=== PATIENT | female | born 1960 | race Caucasian/White ===

== ENCOUNTER 2017-04-28 09:20 | Emergency (ER) | payer OTHER ==
[~2017-04-28] VITALS: Ht 162.6 cm; Wt 121.0 kg
[2017-04-28 09:20] VITALS: BP 130/86; PULSE 76; RESP 16; TEMP 98.1; O2SAT 93
[~2017-04-28 09:20] MED LIST: CARB6.5S5 RIGHT EAR; CELE20TA PO; LEVO.05 PO; PALI156P IM
[2017-04-28] MEDS ORDERED: INVE1.5T PO (09:31)
[2017-04-28] MEDS ORDERED: NAPR500T PO (09:56)
[2017-04-28] MEDS ORDERED: OFLO0.3D9 RIGHT EAR (09:56)
--- NOTE | 2017-04-28 09:57 | PD ---
HPI Chief Complaint: ENT Complaint Time Seen by Provider: 09:31 Travel History International Travel<30 days: No Contact w/Intl Traveler<30days: No Traveled to known affect area: No History of Present Illness HPI The 56 year-old woman, history of schizophrenia, presents to the emergency department with right ear pain. She was at her primary physician's office when they noted ear wax in the ear canal. She states to nurses came in to clear the ear out. She states that she felt like there were forceful, and she had a lot of pain. Since that time she had persistent pain in the right ear. The try to get in to see an ENT doctor but they required a referral. She otherwise has been feeling generally well and healthy. She's had no real cough or cold symptoms. She has had some nausea. No other complaints. History Past Medical History Narrative Medical Schizoaffective disorder Arthritis Asthma Anxiety and depression High cholesterol Influenza Vaccination: Yes PNEUMOCCOCAL Vaccine (Year): 2 LMP: MENOPAUSAL Menopausal: Yes : 0 Para: 0 Social History Alcohol Use: No Tobacco Use: No Allergies-Medications (Allergen,Severity, Reaction): Coded Allergies: Penicillin (Verified Allergy, Severe, Rash, 04/28/17) Latex (Verified Allergy, Mild, RASH, 04/28/17) Reported Meds & Prescriptions Reported Meds & Active Scripts Active Celexa (Citalopram Hydrobromide) 20 Mg Tab 20 Mg PO DAILY 14 Days Reported Invega (Paliperidone ER) 1.5 Mg Tab 1.5 Mg PO DAILY Invega Sustenna Inj (Paliperidone Palmitate) 156 Mg/Ml Inj 156 Mg IM Q28D Synthroid (Levothyroxine Sodium) 50 Mcg Tab 50 Mcg PO DAILY Review of Systems Except as stated in HPI: all other systems reviewed are Neg Physical Exam Narrative GENERAL: Well-appearing 56 old woman, no acute distress. SKIN: Focused skin assessment warm/dry. HEAD: Atraumatic. Normocephalic. EYES: Pupils equal and round. No scleral icterus. No injection or drainage. ENT: No nasal bleeding or discharge. Mucous membranes pink and moist. Right TM has evidence of perforation just below the umbo. Small, less than 10% of the tympanic membrane. No erythema redness or drainage. No bleeding. NECK: Trachea midline. No JVD. CARDIOVASCULAR: Regular rate and rhythm. No murmur appreciated. RESPIRATORY: No accessory muscle use. Clear to auscultation. Breath sounds equal bilaterally. GASTROINTESTINAL: Abdomen soft, non-tender, nondistended. Hepatic and splenic margins not palpable. MUSCULOSKELETAL: No obvious deformities. Data Data Last Documented VS Vital Signs Date Time Temp Pulse Resp B/P Pulse Ox O2 Delivery O2 Flow Rate FiO2 04/28/17 09:20 98.1 76 16 130/86 93 MDM Medical Decision Making Medical Screen Exam Complete: Yes Emergency Medical Condition: Yes Differential Diagnosis Perforated eardrum, infection, other Narrative Course Medical decision-making new para 56 old woman, looks like she has a perforated eardrum. We'll place her on prophylactic eardrops. Naprosyn for pain. Outpatient follow-up with ENT. Diagnosis Primary Impression: Perforated right tympanic membrane on examination Referrals: Mario Conklin MD 1 week Additional Instructions: Take Naprosyn as prescribed as needed for pain. Take eardrops as prescribed daily. Follow-up with Dr. Conklin, surgery consultant with ENT. Return to the emergency department for any new or worsening symptoms. Med/Other Pt SpecificInfo: Prescription(s) given Scripts Naproxen 500 Mg [id number] Mg PO BID PRN (PAIN SCALE 1 TO 10) #20 TAB Ref 0 Prov:Terrence Aguilar MD 04/28/17 Ofloxacin Otic Drops 0.3 % Drops5 Drop RIGHT EAR DAILY #1 BOTTLE Ref 0 Prov:Terrence Aguilar MD 04/28/17 Disposition: 01 DISCHARGE HOME Condition: Stable Terrence Aguilar MD Apr 28, 2017 09:57
[2017-04-28] MEDS ORDERED: NAPROXEN 500 MG TAB PO ONE (10:15)
== END 2017-04-28 10:17 | disposition home or self-care (01) ==
LOC: PHEFT 09:20
DX: H72.91 Unspecified perforation of tympanic membrane, right ear (principal); F20.9 Schizophrenia, unspecified
CPT/HCPCS: 99283

== ENCOUNTER 2017-06-09 13:21 | Inpatient (IN) | payer OTHER, MEDICARE ==
[~2017-06-09] VITALS: Ht 162.6 cm; Wt 119.0 kg
[~2017-06-09 13:21] MED LIST changes: -CARB6.5S5 RIGHT EAR; +INVE1.5T PO; +NAPR500T PO; +OFLO0.3D9 RIGHT EAR
[2017-06-09 13:22] VITALS: BP 124/92; PULSE 99; RESP 18; TEMP 98.1; O2SAT 98
--- NOTE | 2017-06-09 14:25 | PD ---
HPI Chief Complaint: Suicide Ideation/Attempt Time Seen by Provider: 14:24 Travel History International Travel<30 days: No Contact w/Intl Traveler<30days: No Traveled to known affect area: No History of Present Illness HPI 56-year-old female with PMH of bipolar, borderline personality disorder, schizoaffective disorder presents to the ED for evaluation of suicidal ideations and auditory hallucinations. Patient states that she's been hearing voices for the last week that tell her to harm herself. She has self harm in the past and displays multiple linear cuts to each wrist bilaterally. She states that she's been off some of her psychiatric medications for a few months. She complains of chronic pain in the right thumb, no worse than usual today. She denies other somatic complaints. She denies drinking alcohol, using illicit drugs, cigarette smoking. PFSH Past Medical History Arthritis: Yes Asthma: Yes Autoimmune Disease: No Blood Disorders: No Bipolar Disorder: Yes Anxiety: Yes Depression: Yes Heart Rhythm Problems: No Cancer: No Cardiovascular Problems: No High Cholesterol: Yes Chemotherapy: No Chest Pain: No Congestive Heart Failure: No COPD: No Cerebrovascular Accident: No Developmental Delay: Yes Diabetes: No Diminished Hearing: No Endocrine: Yes GERD: No Gout: Yes Genitourinary: No Hiatal Hernia: No Hypertension: No Immune Disorder: No Implanted Vascular Access Dvce: No Kidney Stones: No Musculoskeletal: Yes Neurologic: No Psychiatric: Yes Reproductive: No Respiratory: Yes (ASTHMA) Immunizations Current: Yes Migraines: No Radiation Therapy: No Renal Failure: No Schizophrenia: Yes Seizures: No Sickle Cell Disease: No Sleep Apnea: Yes ("TAKEN OFF MACHINE AT NIGHT COUPLE MONTHS AGO") Thyroid Disease: Yes Ulcer: No PNEUMOCCOCAL Vaccine (Year): 2 Menopausal: Yes : 0 Para: 0 Miscarriage: 0 : 0 Past Surgical History Abdominal Surgery: No AICD: No Arteriovenous Shunt: No Cardiac Surgery: No Ear Surgery: Yes (L EAR-REBUILD EAR DRUM, REMOVE SCAR TISSUE) Endocrine Surgery: No Eye Surgery: Yes (left eye repair for lazy eye) Genitourinary Surgery: No Gynecologic Surgery: No Insulin Pump: No Joint Replacement: Yes (R KNEE) Oral Surgery: No Thoracic Surgery: No Tonsillectomy: Yes Tympanostomy Tube: Yes (L EAR ) Social History Alcohol Use: No Tobacco Use: No Substance Use: Yes (COCAINE) Allergies-Medications (Allergen,Severity, Reaction): Coded Allergies: Penicillin (Verified Allergy, Severe, Rash, 04/28/17) Latex (Verified Allergy, Mild, RASH, 04/28/17) Reported Meds & Prescriptions Reported Meds & Active Scripts Active Naproxen 500 Mg Tab 500 Mg PO BID PRN Ofloxacin Otic Drops 0.3 % Drops 5 Drop RIGHT EAR DAILY Celexa (Citalopram Hydrobromide) 20 Mg Tab 20 Mg PO DAILY 14 Days Reported Invega (Paliperidone ER) 1.5 Mg Tab 1.5 Mg PO DAILY Invega Sustenna Inj (Paliperidone Palmitate) 156 Mg/Ml Inj 156 Mg IM Q28D Synthroid (Levothyroxine Sodium) 50 Mcg Tab 50 Mcg PO DAILY Review of Systems Except as stated in HPI: all other systems reviewed are Neg Physical Exam Narrative GENERAL: Well-nourished, well-developed obese white female in no acute distress. SKIN: Focused skin assessment warm/dry. Multiple well-healed linear scars on bilateral wrists. HEAD: Normocephalic. EYES: No scleral icterus. No injection or drainage. NECK: Supple, trachea midline. No JVD or lymphadenopathy. CARDIOVASCULAR: Regular rate and rhythm without murmurs, gallops, or rubs. RESPIRATORY: Breath sounds clear and equal bilaterally. No accessory muscle use. GASTROINTESTINAL: Abdomen soft, non-tender, nondistended. Active bowel sounds. MUSCULOSKELETAL: No cyanosis, or edema. No tenderness to palpation of the right thumb. Patient retains her normal range of motion. Neurovascularly intact. BACK: Nontender without obvious deformity. No CVA tenderness. Data Data Last Documented VS Vital Signs Date Time Temp Pulse Resp B/P Pulse Ox O2 Delivery O2 Flow Rate FiO2 06/09/17 14:50 99 Room Air 06/09/17 13:22 98.1 99 18 124/92 Orders Complete Blood Count With Diff (06/09/17 14:15) Comprehensive Metabolic Panel (06/09/17 14:15) Urinalysis - C+S If Indicated (06/09/17 14:15) Psych Screen (06/09/17 14:15) Drug Screen, Random Urine (06/09/17 14:15) Alcohol (Ethanol) (06/09/17 14:15) Ice/Cold Pack (06/09/17 14:25) Ibuprofen (Motrin) (06/09/17 14:30) Diet Regular Basic (06/09/17 Dinner) Labs Laboratory Tests Test 06/09/17 14:20 White Blood Count 8.7 TH/MM3 Red Blood Count 4.47 MIL/MM3 Hemoglobin 13.2 GM/DL Hematocrit 38.4 % Mean Corpuscular Volume 86.0 FL Mean Corpuscular Hemoglobin 29.5 PG Mean Corpuscular Hemoglobin 34.4 % Concent Red Cell Distribution Width 13.9 % Platelet Count 240 TH/MM3 Mean Platelet Volume 8.7 FL Neutrophils (%) (Auto) 73.6 % Lymphocytes (%) (Auto) 19.2 % Monocytes (%) (Auto) 5.3 % Eosinophils (%) (Auto) 1.5 % Basophils (%) (Auto) 0.4 % Neutrophils # (Auto) 6.4 TH/MM3 Lymphocytes # (Auto) 1.7 TH/MM3 Monocytes # (Auto) 0.5 TH/MM3 Eosinophils # (Auto) 0.1 TH/MM3 Basophils # (Auto) 0.0 TH/MM3 CBC Comment DIFF FINAL Differential Comment Urine Color LIGHT-YELLOW Urine Turbidity CLEAR Urine pH 5.5 Urine Specific [place] 1.008 Urine Protein NEG mg/dL Urine Glucose (UA) NEG mg/dL Urine Ketones NEG mg/dL Urine Occult Blood NEG Urine Nitrite NEG Urine Bilirubin NEG Urine Urobilinogen LESS THAN 2.0 MG/DL Urine Leukocyte Esterase NEG Urine RBC 1 /hpf Urine WBC 1 /hpf Urine Bacteria RARE /hpf Urine Hyaline Casts 1 /lpf Microscopic Urinalysis Comment CULT NOT INDICATED Sodium Level 138 MEQ/L Potassium Level 3.7 MEQ/L Chloride Level 105 MEQ/L Carbon Dioxide Level 23.7 MEQ/L Anion Gap 9 MEQ/L Blood Urea Nitrogen 15 MG/DL Creatinine 0.80 MG/DL Estimat Glomerular Filtration 75 ML/MIN Rate Random Glucose 154 MG/DL Calcium Level 8.9 MG/DL Total Bilirubin 0.3 MG/DL Aspartate Amino Transf 16 U/L (AST/SGOT) Alanine Aminotransferase 32 U/L (ALT/SGPT) Alkaline Phosphatase 106 U/L Total Protein 6.9 GM/DL Albumin 3.2 GM/DL Urine Opiates Screen NEG Urine Barbiturates Screen NEG Urine Amphetamines Screen NEG Urine Benzodiazepines Screen NEG Urine Cocaine Screen NEG Urine Cannabinoids Screen NEG Ethyl Alcohol Level LESS THAN 3 MG/DL MDM Medical Decision Making Medical Screen Exam Complete: Yes Emergency Medical Condition: Yes Differential Diagnosis Adjustment disorder versus anxiety versus bipolar versus depression versus dementia versus electrolyte disorder versus malingering versus mood disorder versus ODD versus psychosis versus PTSD versus schizophrenia versus schizoaffective disorder versus substance-induced mood disorder versus other Narrative Course 56-year-old female with PMH of bipolar, borderline personality disorder, schizoaffective disorder presents to the ED for evaluation of suicidal ideations and auditory hallucinations. Patient states that she's been hearing voices for the last week that tell her to harm herself. She has self harm in the past and displays multiple linear cuts to each wrist bilaterally. She states that she's been off some of her psychiatric medications for a few months. Vitals reviewed. Physical exam unremarkable. Patient was placed under [place] act. The patient was administered an ice pack and ibuprofen for her thumb pain. Lab work is unremarkable. The patient is medically cleared for psychiatric evaluation. Please see psych notes for disposition. Diagnosis Primary Impression: Medical clearance for psychiatric admission Additional Impressions: Suicidal ideation Auditory hallucination Kassy Bustillo Jun 09, 2017 14:25
[2017-06-09 14:29] LABS: AUTOMATED NEUTROPHIL # 6.4 TH/MM3 (1.8-7.7); BASOPHIL % 0.4 % (0.0-2.0); EOSINOPHIL # 0.1 TH/MM3 (0-0.4); EOSINOPHIL % 1.5 % (0.0-4.0); HEMATOCRIT 38.4 % (35.0-46.0); HEMO FLAGS DIFF FINAL; LYMPH % 19.2 % (9.0-44.0); LYMPHOCYTE # 1.7 TH/MM3 (1.0-4.8); MEAN CORPUSCULAR HEMOGLOBIN 29.5 PG (27.0-34.0); MEAN CORPUSCULAR HGB CONC 34.4 % (32.0-36.0); MONO % 5.3 % (0.0-8.0); NEUT % 73.6 % (16.0-70.0); PLATELET COUNT 240 TH/MM3 (150-450); RED BLOOD COUNT 4.47 MIL/MM3 (4.00-5.30); RED CELL DISTRIBUTION WIDTH 13.9 % (11.6-17.2); WHITE BLOOD COUNT 8.7 TH/MM3 (4.0-11.0)
[2017-06-09] MEDS ORDERED: IBUPROFEN 600 MG TAB PO ONE (14:30)
[2017-06-09 14:33] LABS: BACTERIA, URINE RARE /hpf; BLOOD, URINE NEG (NEG); COMMENT (UR) CULT NOT INDICATED; CULTURE IF INDICATED CULT NOT INDICATED; GLUCOSE,URINE NEG (NEG); HYALINE CAST, URINE 1 /lpf (RARE); KETONE, URINE NEG (NEG); NITRITE,URINE NEG (NEG); PH, URINE 5.5 (5.0-8.5); URINE COLOR LIGHT-YELLOW (YELLW/STRAW)
[2017-06-09 14:37] LABS: AMPHETAMINE, URINE NEG (NEG); BARBITURATES, URINE NEG (NEG); COCAINE, URINE NEG (NEG)
[2017-06-09 14:44] LABS: ANION GAP 9 MEQ/L (5-15); AST (GOT) 16 U/L (15-37); BICARBONATE 23.7 MEQ/L (21.0-32.0); BLOOD UREA NITROGEN 15 MG/DL (7-18); CHLORIDE 105 MEQ/L (98-107); GLOMERULAR FILTRATION RATE 75 ML/MIN (>89); POTASSIUM 3.7 MEQ/L (3.5-5.1); SODIUM (NA) 138 MEQ/L (136-145)
[2017-06-09 14:45] LABS: ALT (GPT) 32 U/L (10-53)
[2017-06-09 14:48] LABS: ALKALINE PHOSPHATASE 106 U/L (45-117); TOTAL BILIRUBIN ADULT 0.3 MG/DL (0.2-1.0)
[2017-06-09 16:42] VITALS: BP 118/74; PULSE 85; RESP 16; O2SAT 100
[2017-06-09 18:30] VITALS: BP 118/84; PULSE 93; RESP 18; TEMP 98; O2SAT 93
[2017-06-09] MEDS ORDERED: ALUMINUM/MAGNESIUM/SIMETH 30 ML CUP PO PRN (21:45)
[2017-06-09] MEDS ORDERED: ACETAMINOPHEN 325 MG TAB PO PRN (21:45)
[2017-06-09] MEDS ORDERED: MAGNESIUM HYDROXIDE SUSP 30 ML CUP PO PRN (21:45)
[2017-06-09] MEDS ORDERED: LORazepam 2 MG/ML VIAL IM PRN (21:45)
[2017-06-09 23:02] VITALS: BP 132/92; PULSE 94; RESP 18; O2SAT 98
[2017-06-10 00:10] VITALS: BP 130/84; PULSE 84; RESP 16; TEMP 97.7; O2SAT 97
[2017-06-10 05:30] VITALS: PULSE 83; RESP 16; TEMP 97.9; O2SAT 94
[2017-06-10 08:13] LABS: HDL CHOLESTEROL 42.3 MG/DL (40.0-60.0); LDL CHOLESTEROL 119 MG/DL (0-99)
[2017-06-10] MEDS: CITALOPRAM HYDROBROMIDE 20 MG TAB PO SCH (09:16)
[2017-06-10] MEDS: PALIPERIDONE ER 3 MG TAB PO SCH (09:26)
[2017-06-10] MEDS ORDERED: ALBUTEROL SULFATE 90 MCG/ACT HFA 18 GM INHALER INH PRN (09:45)
[2017-06-10] MEDS ORDERED: ALBUTEROL SULFATE 90 MCG/ACT HFA 8 GM INHALER INH PRN (09:45)
--- NOTE | 2017-06-10 11:56 | HHI.HP ---
Provisional Diagnosis Admission Date Jun 09, 2017 at 21:21 [place] I. Schizoaffective disorder, bipolar type [place] II. Borderline personality disorder [place] III. HTN, asthma [place] IV. History of suicidal attempts and self cutting behavior [place] V. 40 Certification of Person's Competence To Provide Express and Informed Consent I have personally examined Maida Xavier , a person being served at [facility] on, Jun 10, 2017 11:39. Express and informed consent means consent voluntarily given in writing, by a competent person, after sufficient explanation and disclosure of the subject matter involved to enable the person to make a knowing and willful decision without any element of force, fraud, deceit, duress, or other form of constraint or coercion. This person is 18 years of age or older, is not now known to be incompetent to consent to treatment with a guardian advocate, and does not have a health care surrogate or proxy currently making medical treatment decisions. I have found this person to be one of the following: [x] Competent to provide express and informed consent, as defined above, for voluntary admission to this facility and is competent to provide express and informed consent for treatment. He/she has the consistent capacity to make well reasoned, willful, and knowing decisions concerning his or her medical or mental health treatment. The person fully and consistently understands the purpose of the admission for examination/placement and is fully capable of personally exercising all rights [place] Incompetent to provide express and informed consent to voluntary admission, and this is incompetent to provide express and informed consent to treatment. The person must be transferred to involuntary status and a petition for a guardian advocate filed with the Circuit Court. [] Refusing to provide express and informed consent to voluntary admission but is competent to provide express and informed consent for treatment. The person must be discharged or transferred to involuntary status. Form shall be completed within 24 hours of a person's arrival at the receiving facility and filed in the clinical record of each person: 1. Admitted on a voluntary basis 2. Permitted to provide express and informed consent to his/her own treatment 3. Allowed to transfer from involuntary to voluntary status 4. Prior to permitting a person to consent to his or her own treatment after having been previously found incompetent to consent to treatment. History of Present Illness Capacity: Has Capacity HPI The patient is a 56-year-old woman, domicile with her mother in [place], part-time employed, on SSI, single, with extensive psychiatric history of schizoaffective disorder, bipolar type, borderline personality disorder, multiple psychiatric hospitalizations, her last hospitalization was here at [facility] in September 2016 under the care of Dr. Joya, documentation review, multiple suicidal/parasuicidal attempts, self cutting behavior without SI, active outpatient care in [facility], she is on Invega ER 6 mg daily and Celexa 10, has not been compliant with medication was given Invega Sustenna dose on [id number], unknown dose, medical history of HTN, asthma, who came to [facility] voluntarily requested psychiatric admission due to command in type auditory hallucinations of voices telling her to cut herself. On psychiatric evaluation today patient is calm, cooperative, she explains that in the last 4 days she has been experiencing everyday more frequent, or severe, intense and loud auditory hallucinations of multiple voices telling her to cut herself. Patient also has been experiencing increased desire and impulses to cut herself " because I want to feel the gratification of the pain going away, but I know it' s wrong, I don't want to do it and I don't want to ". Due to this perceptual disturbances patient has been feeling depressed, with decreased level of appetite, decreased sleep, decreased energy, increased isolation, increased sensitivity to rejection and frustration and mood swings. Patient says that she has not been taking her medications for some weeks now. She says that she just stoped. Patient is oriented 3, no attention deficit, no gross cognitive impairment present. Patient has a concrete and goal-directed thought processes, but no disorganization, no tangentiality, no paranoia, no delusions of reference present. Patient denies the use of alcohol and illicit drugs. Review of Systems Constitutional: DENIES: Diaphoretic episodes, Fatigue, Fever, Weight gain, Weight loss, Chills, Dizziness, Change in appetite, Night Sweats Endocrine: DENIES: Abnorml menstrual pattern, Heat/cold intolerance, Polydipsia , Polyuria, Polyphagia Eyes: DENIES: Blurred vision, Diplopia, Eye inflammation, Eye pain, Vision loss , Photosensitivity, Double Vision Ears, nose, mouth, throat: DENIES: Tinnitus, Hearing loss, Vertigo, Nasal discharge, Oral lesions, Throat pain, Hoarseness, Ear Pain, Running Nose, Epistaxis, Sinus Pain, Toothache, Odynophagia Respiratory: DENIES: Apneas, Cough, Snoring, Wheezing, Hemoptysis, Sputum production, Shortness of breath Cardiovascular: DENIES: Chest pain, Palpitations, Syncope, Dyspnea on Exertion , PND, Lower Extremity Edema, Orthopnea, Claudication Genitourinary: DENIES: Abnormal vaginal bleeding, Dysmenorrhea, Dyspareunia, Sexual dysfunction, Urinary frequency, Urinary incontinence, Urgency, Hematuria , Dysuria, Nocturia, Vaginal discharge Musculoskeletal: DENIES: Joint pain, Muscle aches, Stiffness, Joint Swelling, Back pain, Neck pain Integumentary: DENIES: Abnormal pigmentation, Pruritus, Rash, Nail changes, Breast masses, Breast skin changes, Nipple discharge Hematologic/lymphatic: DENIES: Bruising, Lymphadenopathy Immunologic/allergic: DENIES: Eczema, Urticaria Neurologic: DENIES: Abnormal gait, Headache, Localized weakness, Paresthesias, Seizures, Speech Problems, Tremor, Poor Balance Psychiatric: COMPLAINS OF: Hallucinations, Delusions Past Psych History Violence risk - self (6 mos) Increased Substance Abuse History Drugs/Alcohol past 12 months Patient denies the use of drugs and alcohol Past Family Social History Coded Allergies: Penicillin (Verified Allergy, Severe, Rash, 04/28/17) Latex (Verified Allergy, Mild, RASH, 04/28/17) Active Scripts Naproxen 500 Mg [id number] Mg PO BID PRN (PAIN SCALE 1 TO 10) #20 TAB Ref 0 Prov:Terrence Aguilar MD 04/28/17 Citalopram (Celexa)20 Mg Tab20 Mg PO DAILY 14 Days Ref 1 Prov:Sandro Joya MD 10/10/16 Reported Medications Paliperidone ER (Invega)1.5 Mg Tab1.5 Mg PO DAILY #30 TAB Ref 0 04/28/17 Paliperidone Palmitate Inj (Invega Sustenna Inj)156 Mg/Ml [id number] Mg IM Q28D #1 VIAL Ref 0 10/04/16 Levothyroxine (Synthroid)50 Mcg Tab50 Mcg PO DAILY #30 TAB Ref 0 10/04/16 Discontinued Scripts Ofloxacin Otic Drops 0.3 % Drops5 Drop RIGHT EAR DAILY #1 BOTTLE Ref 0 Prov:Terrence Aguilar MD 04/28/17 Current Medications Medications (Trade) Dose Ordered Sig/Bk Route Start Time Stop Time Status Last Admin (Ativan) 1 mg Q6H PRN PO 06/09/17 21:45 (Ativan Inj) 1 mg Q6H PRN IM 06/09/17 21:45 (Tylenol) 650 mg Q4H PRN PO 06/09/17 21:45 (Milk Of Magnesia Liq) 30 ml DAILY PRN PO 06/09/17 21:45 (Mag-Al Plus Susp Liq) 30 ml Q6H PRN PO 06/09/17 21:45 (Invega Er) 3 mg DAILY PO 06/10/17 09:00 06/10/17 09:26 (CeleXA) 10 mg DAILY PO 06/10/17 09:00 06/10/17 09:16 (Synthroid) 50 mcg DAILY@06 PO 06/11/17 06:00 (Ventolin Hfa Inh) 2 puff Q4H PRN INH 06/10/17 09:45 Family History She denies family psychiatric history Social History Patient was born in [facility], she lives with her mother in [place], single, part-time employed, on SSI since the, highest level of education is high school Patient's Strengths (min. 2) Good insight Physical Exam On physical examination, no tremors, no withdrawal, no EPS, no gait disturbance present Vital Signs Vital Signs Date Time Temp Pulse Resp B/P Pulse Ox O2 Delivery O2 Flow Rate FiO2 06/10/17 05:30 97.9 83 16 94 06/09/17 23:02 Room Air Lab Results Labs Laboratory Tests Test 06/09/17 14:20 White Blood Count 8.7 TH/MM3 Red Blood Count 4.47 MIL/MM3 Hemoglobin 13.2 GM/DL Hematocrit 38.4 % Mean Corpuscular Volume 86.0 FL Mean Corpuscular Hemoglobin 29.5 PG Mean Corpuscular Hemoglobin 34.4 % Concent Red Cell Distribution Width 13.9 % Platelet Count 240 TH/MM3 Mean Platelet Volume 8.7 FL Neutrophils (%) (Auto) 73.6 % Lymphocytes (%) (Auto) 19.2 % Monocytes (%) (Auto) 5.3 % Eosinophils (%) (Auto) 1.5 % Basophils (%) (Auto) 0.4 % Neutrophils # (Auto) 6.4 TH/MM3 Lymphocytes # (Auto) 1.7 TH/MM3 Monocytes # (Auto) 0.5 TH/MM3 Eosinophils # (Auto) 0.1 TH/MM3 Basophils # (Auto) 0.0 TH/MM3 CBC Comment DIFF FINAL Differential Comment Urine Color LIGHT-YELLOW Urine Turbidity CLEAR Urine pH 5.5 Urine Specific [place] 1.008 Urine Protein NEG mg/dL Urine Glucose (UA) NEG mg/dL Urine Ketones NEG mg/dL Urine Occult Blood NEG Urine Nitrite NEG Urine Bilirubin NEG Urine Urobilinogen LESS THAN 2.0 MG/DL Urine Leukocyte Esterase NEG Urine RBC 1 /hpf Urine WBC 1 /hpf Urine Bacteria RARE /hpf Urine Hyaline Casts 1 /lpf Microscopic Urinalysis Comment CULT NOT INDICATED Sodium Level 138 MEQ/L Potassium Level 3.7 MEQ/L Chloride Level 105 MEQ/L Carbon Dioxide Level 23.7 MEQ/L Anion Gap 9 MEQ/L Blood Urea Nitrogen 15 MG/DL Creatinine 0.80 MG/DL Estimat Glomerular Filtration 75 ML/MIN Rate Random Glucose 154 MG/DL Calcium Level 8.9 MG/DL Total Bilirubin 0.3 MG/DL Aspartate Amino Transf 16 U/L (AST/SGOT) Alanine Aminotransferase 32 U/L (ALT/SGPT) Alkaline Phosphatase 106 U/L Total Protein 6.9 GM/DL Albumin 3.2 GM/DL Urine Opiates Screen NEG Urine Barbiturates Screen NEG Urine Amphetamines Screen NEG Urine Benzodiazepines Screen NEG Urine Cocaine Screen NEG Urine Cannabinoids Screen NEG Ethyl Alcohol Level LESS THAN 3 MG/DL Mental Status Examination Appearance Overweight woman, appears younger than his stated age, regular clothing, calm and cooperative Speech: Unremarkable Orientation: x3 Memory: Unremarkable Thought Process: Logical Thought Content: Unremarkable Language Fluent and spontaneous Fund of Knowledge Adequate for her level of education Hallucination Type: Auditory (commanding type, telling her to cut herself) Attention and Concentration: Good Suicidal Ideation: No Previous Suicide Attempts: Yes Homicidal Ideation: No Previous Homicide Attempts: No Insight: Good Judgment: Impulsive Affect: Sad Mood: Sad Assessment & Plan Problem List: (1) Borderline personality disorder ICD Code: 301.83 (2) Schizoaffective disorder Assessment & Plan: On psychiatric evaluation patient reports 4 days of increased intensity, frequency and severity commanding-type auditory hallucinations of voices telling her to cut herself in the context of noncompliance with her psychotropics. Patient also reports depressive symptoms related with his perceptual disturbances. Patient has an extensive history of suicidal attempts and self cutting behavior. At this moment she is in an elevator risk of hurting herself and needs psychiatric admission for stabilization and safety. Will start Invega 3 mg and Celexa 10. Collateral information from [facility] to confirm last dose of Invega Sustenna. Patient has contracted for safety in the unit. Extensive support, motivation and psychoeducation provided. We will consult medicine for underlying medical condition, increased TSH. dry drug worker intervention for psychosocial assessment, collateral information, individual and group therapy, safe discharge. ICD Code: 295.70 Assessment & Plan Estimated LOS: days Byron Smith MD Jun 10, 2017 11:56
[2017-06-10] MEDS ORDERED: LEVO.075 PO (14:33)
--- NOTE | 2017-06-10 14:51 | PD.CONS ---
HPI Service [facility] Consult Requested By Psychiatric services Reason for Consult COPD, ASTHMA, BILATERAL LEG EDEMA, SLEEP APNEA Primary Care Physician Unknown Diagnoses: History of Present Illness Written by Sia Walker, acting as scribe for Dr. Hammodn on 06/10/17 at 14:44. This is a 56-year-old female patient with past medical history which includes hypothyroidism, bipolar disorder and asthma. Patient reports that she has her voices telling her to cut her wrist. Patient currently admitted to inpatient psychiatric center we been consulted for assistance with medical management of COPD, asthma, bilateral leg edema and sleep apnea. Patient offers no specific medical complaints at this time. Patient denies chest pains was breath nausea vomiting diarrhea constipation fevers or chills. Patient does report she is compliant with her Synthroid daily. Patient ports she has not used her rescue inhaler in many years. Review of Systems Except as stated in HPI: all other systems reviewed are Neg Past Family Social History Allergies: Coded Allergies: Penicillin (Verified Allergy, Severe, Rash, 04/28/17) Latex (Verified Allergy, Mild, RASH, 04/28/17) Past Medical History hypothyroidism, bipolar disorder and asthma Past Surgical History Eye surgery as a child to correct a strabismus Tonsillectomy as a child Right thumb bone fusion Partial right knee replacement Left ear tympanic membrane repair Reported Medications Naproxen 500 Mg Tab 500 Mg PO BID PRN Celexa (Citalopram Hydrobromide) 20 Mg Tab 20 Mg PO DAILY 14 Days Invega (Paliperidone ER) 1.5 Mg Tab 1.5 Mg PO DAILY Invega Sustenna Inj (Paliperidone Palmitate) 156 Mg/Ml Inj 234 Mg IM Q28D Synthroid (Levothyroxine Sodium) 50 Mcg Tab 50 Mcg PO DAILY Active Ordered Medications Current Medications Medications (Trade) Dose Ordered Sig/Bk Route Start Time Stop Time Status Last Admin (Ativan) 1 mg Q6H PRN PO 06/09/17 21:45 (Ativan Inj) 1 mg Q6H PRN IM 06/09/17 21:45 (Tylenol) 650 mg Q4H PRN PO 06/09/17 21:45 (Milk Of Magnesia Liq) 30 ml DAILY PRN PO 06/09/17 21:45 (Mag-Al Plus Susp Liq) 30 ml Q6H PRN PO 06/09/17 21:45 (Invega Er) 3 mg DAILY PO 06/10/17 09:00 06/10/17 09:26 (CeleXA) 10 mg DAILY PO 06/10/17 09:00 06/10/17 09:16 (Synthroid) 50 mcg DAILY@06 PO 06/11/17 06:00 (Ventolin Hfa Inh) 2 puff Q4H PRN INH 06/10/17 09:45 Family History Father in his 50s had CAD with coronary artery bypass graft and lung cancer Social History Denies EtOH use tobacco use or illicit drug use lives with her mother Physical Exam Vital Signs Vital Signs Date Time Temp Pulse Resp B/P Pulse Ox O2 Delivery O2 Flow Rate FiO2 06/10/17 05:30 97.9 83 16 94 06/10/17 00:10 97.7 84 16 130/84 97 06/09/17 23:02 94 18 132/92 98 Room Air 06/09/17 18:30 98.0 93 18 118/84 93 Room Air 06/09/17 16:42 85 16 118/74 100 06/09/17 14:50 99 Room Air Physical Exam GENERAL: This is a well-nourished, well-developed patient, in no apparent distress. SKIN: No rashes, ecchymoses or lesions. Cool and dry. HEAD: Atraumatic. Normocephalic. No temporal or scalp tenderness. EYES: Extraocular motions intact. No scleral icterus. No injection or drainage. CARDIOVASCULAR: Regular rate and rhythm RESPIRATORY: Clear to auscultation. Breath sounds equal bilaterally. No wheezes , rales, or rhonchi. GASTROINTESTINAL: Abdomen soft, non-tender, nondistended. No guarding. MUSCULOSKELETAL: Extremities without clubbing or cyanosis. No calf tenderness. Negative Homans sign bilaterally. Trace bilateral lower extremity edema NEUROLOGICAL: Awake and alert. No focal deficits appreciated. Motor and sensory grossly within normal limits. Five out of 5 muscle strength in all muscle groups. Normal speech. Laboratory Laboratory Tests Test 06/10/17 06:56 Triglycerides Level 177 Cholesterol Level 197 LDL Cholesterol 119 HDL Cholesterol 42.3 Cholesterol/HDL Ratio 4.65 Thyroid Stimulating Hormone 4.150 3rd Gen Result Diagram: 06/09/17 1420 06/09/17 1420 Assessment and Plan Assessment and Plan This is a 56-year-old female patient with past medical history which includes hypothyroidism, bipolar disorder and asthma. Patient does report she is compliant with her Synthroid daily. Patient ports she has not used her rescue inhaler in many years. Patient offers no specific medical complaint at this time. Suicidal ideations management per psychiatric team Hypothyroidism- TSH 4.15 Patient ports she is compliant with her Synthroid daily Will increase dose to 75 mcg every day Patient will need outpatient follow-up and recheck of TSH/T4 in 6-8 weeks Asthma- not in acute exacerbation Albuterol rescue inhaler ordered as needed DVT prophylaxis patient is ambulatory and low risk Discussed with patient and nursing Patient medically stable at this time we'll sign off. If patient's condition changes or further assistance needed please reconsult. Recommend patient continue Synthroid 75 mcg daily and follow up with PCP/ endocrinology and 6-8 weeks for laboratory recheck and dose adjustment if needed This note was transcribed by scribe [Sia Walker]. I, Dr. Anita Hammond personally performed the history, physical exam, and medical decision making; and confirmed the accuracy of the information in the transcribed note. Authenticated by Dr. Anita Hammond on 06/10/17 at 1450. Sia Walker Jun 10, 2017 14:51 Anita Hammond MD Jun 11, 2017 10:08
[2017-06-10 18:00] VITALS: BP 114/82; PULSE 72; RESP 16; TEMP 96.8; O2SAT 96
[2017-06-10] MEDS: LORazepam 1 MG TAB PO PRN (20:51)
[2017-06-11 05:30] VITALS: BP 113/63; PULSE 83; RESP 18; TEMP 97.8; O2SAT 93
[2017-06-11] MEDS ORDERED: LEVOTHYROXINE SODIUM 50 MCG TAB PO SCH (06:00)
[2017-06-11] MEDS: LEVOTHYROXINE SODIUM 75 MCG TAB PO SCH (06:03)
[2017-06-11] MEDS: CITALOPRAM HYDROBROMIDE 20 MG TAB PO SCH (08:36)
[2017-06-11] MEDS: PALIPERIDONE ER 3 MG TAB PO SCH ×2 (08:36→21:00)
[2017-06-11] MEDS: LORazepam 1 MG TAB PO PRN (10:24)
[2017-06-11 12:27] LABS: HEMOGLOBIN A1a 0.7 %; HEMOGLOBIN A1b 1.8 %; HEMOGLOBIN Ao 85.4 %; HEMOGLOBIN LA1C 1.3 %; HEMOGLOBIN P3 3.4 %
--- NOTE | 2017-06-11 14:26 | HHI.PYPN ---
Subjective Remarks Patient was seen and case discussed with nursing. Patient is anxious and rocking back and forth during the interview. She continues to complain of persistent command auditory hallucinations to cut her wrists. Says she has suicidal ideation with no intent or plan. When asked if she cut herself before admission she says yes, 3 days ago, and points to scars that are old and fully healed. Objective Alert: Yes [place]: Place Mood: Anxious Affect: Labile Memory Intact: Immediate (not tested) Hallucinations: Auditory (command to cut herself) Delusions: Yes Delusion Type: Other (none elicited) Suicidal: Ideation (fleeting, plan to cut herself) Homicidal: Ideation (denies) Insight/Judgment Poor Vitals/IOs Vital Signs Date Time Temp Pulse Resp B/P Pulse Ox O2 Delivery O2 Flow Rate FiO2 06/11/17 05:30 97.8 83 18 113/63 93 06/09/17 23:02 Room Air Assessment & Plan Problem List: (1) Borderline personality disorder ICD Code: 301.83 (2) Schizoaffective disorder ICD Code: 295.70 Assessment & Plan Case was discussed with nursing team and a one-to-one was ordered Justification for Cont. Inpt. Patient will decompensate in a less restrictive setting Ziggy Orantes DO Jun 11, 2017 14:26
[2017-06-11 22:33] VITALS: BP 148/87; PULSE 86; RESP 18; TEMP 87.6; O2SAT 97
[2017-06-12 06:02] VITALS: BP 119/71; PULSE 103; RESP 18; TEMP 97.5; O2SAT 94
[2017-06-12] MEDS: LEVOTHYROXINE SODIUM 75 MCG TAB PO SCH (06:23)
[2017-06-12] MEDS: PALIPERIDONE ER 3 MG TAB PO SCH ×2 (09:28→21:32)
[2017-06-12] MEDS: CITALOPRAM HYDROBROMIDE 20 MG TAB PO SCH (09:28)
[2017-06-12] MEDS: LORazepam 1 MG TAB PO PRN ×3 (09:33→22:01)
--- NOTE | 2017-06-12 12:01 | HHI.PYPN ---
Subjective Remarks Patient seen and examined with counselor and nurse. Chart reviewed. Case discussed with nursing staff who reports that the patient was transferred from the lower acuity unit to the higher acuity unit after verbalizing command auditory hallucinations to self injure. On my examination today, the patient reports that the command auditory hallucinations are "slowing down" now. She denies any suicidal ideation, intent or plan on direct questioning and contracts for safety. Denies homicidal ideation. Says that reading helps distract her from the voices. Denies any issues with low mood or elevated mood. No other hallucinatory material. No delusions. Denies side effects from medications. Says that she got her last dose of Invega Sustenna last Monday. We discussed alternative methods for decreasing her psychotic symptoms , such as augmenting with another antipsychotic or administering additional Invega Sustenna, but the patient wishes to continue with oral supplementation of her Invega Sustenna with PO Invega for now after a discussion of the relative merits of each approach. Denies side effects from medications. No physical complaints. Review of Systems ROS Limitations: Psychotic Except as stated in HPI: all other systems reviewed are Neg Objective Alert: Yes [place]: Person, Place Mood: Calm Affect: Blunted Memory Intact: Comment (fair on clinical exam) Hallucinations: Auditory (decreasing CAH to self injure) Delusions: No Delusion Type: Other (no delusions elicited) Suicidal: Ideation (denies SI, intent, plan) Homicidal: Ideation (denies HI) Insight/Judgment Fair Remarks No motor abnormalities noted. Thought process linear. Grooming and hygiene fair. Speech within normal limits for rate, tone and volume. Labs Labs reviewed. I note elevated TSH, Synthroid has been adjusted. Also note decreased GFR and mild hyperglycemia. Hemoglobin A1c is 6.3%. Vitals/IOs Vital Signs Date Time Temp Pulse Resp B/P Pulse Ox O2 Delivery O2 Flow Rate FiO2 06/12/17 06:02 97.5 103 18 119/71 94 06/09/17 23:02 Room Air Assessment & Plan Problem List: (1) Schizoaffective disorder, bipolar type ICD Code: F25.0 (2) Borderline personality disorder ICD Code: F60.3 Assessment & Plan Continue oral Invega as ordered. Continue Celexa as ordered. I will discontinue the one-to-one sitter but continue to closely monitor on the high acuity unit. Continue other medications and care as ordered. Justification for Cont. Inpt. Impairment in reality construction. Monitoring for impairment and safety. Discharge Planning Pending stabilization. Request HC Surrog/Guard Advoc?: No Brad Haddad MD Jun 12, 2017 12:01
[2017-06-12 18:17] VITALS: BP 136/83; PULSE 83; RESP 18; TEMP 98.1; O2SAT 99
[2017-06-13] MEDS: LEVOTHYROXINE SODIUM 75 MCG TAB PO SCH (05:46)
[2017-06-13 06:04] VITALS: BP 123/89; PULSE 115; RESP 18; TEMP 97.2; O2SAT 93
[2017-06-13] MEDS: PALIPERIDONE ER 3 MG TAB PO SCH ×2 (09:10→21:01)
[2017-06-13] MEDS: LORazepam 1 MG TAB PO PRN ×2 (09:11→15:40)
[2017-06-13] MEDS: CITALOPRAM HYDROBROMIDE 20 MG TAB PO SCH (09:11)
--- NOTE | 2017-06-13 11:55 | HHI.PYPN ---
Subjective Remarks Patient seen and examined with counselor and nurse. Chart reviewed. Case discussed in treatment team. Nursing staff noting significant [place] II component. I concur. On my exam, patient reports that audiovisual hallucinations and command auditory hallucinations have gone away since last night. She denies any suicidal or homicidal ideation. Denies side effects from medications. No physical complaints. Asking about going home. Review of Systems ROS Limitations: Poor Historian Except as stated in HPI: all other systems reviewed are Neg Objective Alert: Yes [place]: Person, Place Mood: Calm Affect: Blunted Memory Intact: Comment (remains fair) Hallucinations: Other (denies AVH. Denies CAH.) Delusions: No Delusion Type: Other (no delusions) Suicidal: Ideation (denies SI) Homicidal: Ideation (denies HI) Insight/Judgment Poor Remarks No motor abnormalities. Thought processes fairly linear. Grooming and hygiene fair. Labs Labs reviewed. Vitals/IOs Vital Signs Date Time Temp Pulse Resp B/P Pulse Ox O2 Delivery O2 Flow Rate FiO2 06/13/17 06:04 97.2 115 18 123/89 93 06/09/17 23:02 Room Air Assessment & Plan Problem List: (1) Schizoaffective disorder, bipolar type ICD Code: F25.0 (2) Borderline personality disorder ICD Code: F60.3 Assessment & Plan Counselor to reach out to patient's mother with patient's permission. If mother is comfortable having the patient home, might consider discharge tomorrow if the patient passes an uneventful evening. Continue current psychotropics as ordered. Continue other medications and care as ordered. Justification for Cont. Inpt. Monitoring for impairments in safety, none noted Discharge Planning Possible discharge home tomorrow, Monday Request HC Surrog/Guard Advoc?: No Brad Haddad MD Jun 13, 2017 11:55
[2017-06-13 18:11] VITALS: BP 107/84; PULSE 86; RESP 18; TEMP 98.1; O2SAT 95
[2017-06-14 05:53] VITALS: BP 128/76; PULSE 18; RESP 18; TEMP 97.3; O2SAT 93
[2017-06-14] MEDS: LEVOTHYROXINE SODIUM 75 MCG TAB PO SCH (05:54)
[2017-06-14] MEDS: CITALOPRAM HYDROBROMIDE 20 MG TAB PO SCH (08:36)
[2017-06-14] MEDS: PALIPERIDONE ER 3 MG TAB PO SCH (08:37)
[2017-06-14] MEDS ORDERED: CELE20TA PO (09:49)
[2017-06-14] MEDS ORDERED: INVE3TAB2 PO (09:49)
--- NOTE | 2017-06-14 09:49 | HHI.DS ---
Psychiatry Discharge Summary Inpatient Psychiatric care?: Yes Advance Directive: No Reason Not Provided: Due to Patient Condition Mental Health AdvanceDirective: No Health Care Proxy: No Admission Admission Date Jun 09, 2017 at 21:21 Admission Diagnosis: (1) Schizoaffective disorder, bipolar type ICD Code: F25.0 (2) Borderline personality disorder ICD Code: F60.3 Brief History The patient is a 56-year-old woman, domicile with her mother in [place], part-time employed, on SSI, single, with extensive psychiatric history of schizoaffective disorder, bipolar type, borderline personality disorder, multiple psychiatric hospitalizations, her last hospitalization was here at [facility] in September 2016 under the care of Dr. Joya, documentation review, multiple suicidal/parasuicidal attempts, self cutting behavior without SI, active outpatient care in [facility], she is on Invega ER 6 mg daily and Celexa 10, has not been compliant with medication was given Invega Sustenna dose on [id number], unknown dose, medical history of HTN, asthma, who came to [facility] voluntarily requested psychiatric admission due to command in type auditory hallucinations of voices telling her to cut herself. On psychiatric evaluation today patient is calm, cooperative, she explains that in the last 4 days she has been experiencing everyday more frequent, or severe, intense and loud auditory hallucinations of multiple voices telling her to cut herself. Patient also has been experiencing increased desire and impulses to cut herself " because I want to feel the gratification of the pain going away, but I know it' s wrong, I don't want to do it and I don't want to ". Due to this perceptual disturbances patient has been feeling depressed, with decreased level of appetite, decreased sleep, decreased energy, increased isolation, increased sensitivity to rejection and frustration and mood swings. Patient says that she has not been taking her medications for some weeks now. She says that she just stoped. Patient is oriented 3, no attention deficit, no gross cognitive impairment present. Patient has a concrete and goal-directed thought processes, but no disorganization, no tangentiality, no paranoia, no delusions of reference present. Patient denies the use of alcohol and illicit drugs. Tobacco Use In Past 30 Days: No Tobacco Past 30 Days Alcohol Use: Never Hospital Course Patient was admitted to a locked, inpatient psychiatric unit. A general medical consultation was obtained. Appropriate precautions were in place throughout patient's hospital stay. Patient was seen and examined daily on the unit by psychiatry and also visited by counselor. Psychotropic medications were adjusted. There is no evidence of any suicidality or homicidality on the inpatient unit, although the patient was moved to the high acuity unit after she disclosed command auditory hallucinations to the weekend rounding physician. This patient has prominent borderline personality traits. Counselor has reached out to patient's mother, who has no concerns about patient returning home at this time. On the day of discharge: Patient seen and examined with counselor and nurse. Chart reviewed. Case discussed with RN who reports that the patient disclosed SI but no plan. She has shown no inclination toward self-injury overnight. On my examination, patient denies suicidal or homicidal ideation, intent or plan on direct questioning and contracts for safety. She is requesting discharge from the inpatient psychiatric unit today. She says that she was upset about some misplaced clothes this morning when she spoke with nurse, and she verbalized the SI as a means of acting out. This seems credible and consistent with her personality style. She denies any issues with mood. No depressive or hypomanic/manic symptoms. She does remain a little bit anxious regarding the clothing but is reassured that staff continues to look for the items. Sleep is fair. She denies any audiovisual hallucinations. I can elicit no delusional material. She denies any side effects from medications. No physical complaints. Weighing the acute, chronic, and protective factors and based on the available evidence, I professional benefits sales consultant to a reasonable degree of medical certainty that the patient is at low imminent risk of harm to self or others from a mental illness as defined under the [place] act and her level of function is adequate for outpatient care. I do believe there is a significant component of chronic risk related to the patient's borderline personality style, but this risk would not be ameliorated by a longer inpatient psychiatric hospital stay. That having been said, I have recommended that the patient remain an additional day for observation out of an abundance of caution. She has declined to remain on the inpatient unit. She does not meet criteria for involuntary psychiatric hospitalization at this time. I will therefore discharge the patient AGAINST MEDICAL ADVICE. Patient follow-up psychiatrically as arranged by counselor. Patient is also to follow-up with primary care. I have counseled the patient regarding warning signs for need to return to the psychiatric emergency room as part of the general safety plan. I have provided the patient with prescriptions for Celexa and Invega, and patient reports that she has an adequate supply of other medications at home. Results Blood Pressure 128 / 76 Vital Signs Date Time Temp Pulse Resp B/P Pulse Ox O2 Delivery O2 Flow Rate FiO2 06/14/17 05:53 97.3 18 18 128/76 93 Laboratory Results Test 06/10/17 06:56 Hemoglobin A1c 6.3 % (4.3-6.0) Triglycerides Level 177 MG/DL (42-150) Cholesterol Level 197 MG/DL (120-200) LDL Cholesterol 119 MG/DL (0-99) HDL Cholesterol 42.3 MG/DL (40.0-60.0) Summary of Procedures None done Imaging None done Pending results at discharge: No Medications # of Antipsychotic meds at D/C: 1 Approp Antipsych med options 1 - Minimum of three failed multiple trials of monotherapy. 2 - Documented plan to taper to monotherapy due to previous use of multiple meds OR cross-taper in progress at D/C. 3 - Documentation of augmentation of Clozapine. 4 - Justification other than those listed in allowable values 1-3, document here : Discharge Discharge Date: Jun 14, 2017 Discharge Diagnosis: (1) Borderline personality disorder Diagnosis: Principal (chronic) ICD Code: F60.3 (2) Schizoaffective disorder, bipolar type Diagnosis: Secondary (stable) ICD Code: F25.0 Mental Status Exam at Disch Patient is casually dressed. She is well groomed. She is awake and alert and oriented to person, place, and approximate date. No delirium. No motor abnormalities. Speech is within normal limits for rate, tone, volume. Mood is fair and affect is blunted. Thought processes linear. No delusions elicited. Denies audiovisual hallucinations and does not appear internally stimulated. Denies suicidal or homicidal ideation, intent, or plan and contracts for safety. Insight and judgment are likely chronically poor. Pt Condition on Discharge: Guarded (AMA discharge) Discharge Disposition: Discharge Home Discharge Instructions Diet Instructions: As Tolerated, No Restrictions Activities you can perform: Weight Bearing as Lenny Scheduled Appointment: as per counselor's notes New Orders: TSH 3RD GEN - 6 Weeks New Medications: Levothyroxine (Synthroid) 75 Mcg Tab 75 MCG PO DAILY Thyroid #30 Ref 0 TAB Citalopram (Celexa) 20 Mg Tab 10 MG PO DAILY Mental Health Days 10 Ref 2 TAB Paliperidone ER (Invega) 3 Mg Tab 3 MG PO BID Mental Health Days 10 Ref 2 TAB Continued Medications: Paliperidone Palmitate Inj (Invega Sustenna Inj) 156 Mg/Ml Inj 234 MG IM Q28D Schizophrenia #1 Ref 0 VIAL Discontinued Medications: Citalopram (Celexa) 20 Mg Tab 20 MG PO DAILY depression Days 14 Ref 1 TAB Levothyroxine (Synthroid) 50 Mcg Tab 50 MCG PO DAILY Thyroid #30 Ref 0 TAB Naproxen (Naproxen) 500 Mg Tab 500 MG PO BID PRN PAIN SCALE 1 TO 10 #20 Ref 0 TAB Paliperidone ER (Invega) 1.5 Mg Tab 1.5 MG PO DAILY Schizophrenia #30 Ref 0 TAB Discharge Time <= 30 minutes Discharge/Advance Care Plan Health Problems: (1) Schizoaffective disorder, bipolar type (2) Borderline personality disorder Goals to promote your health * To prevent worsening of your condition and complications * To maintain your health at the optimal level Directions to meet your goals Take your medications as prescribed Follow your dietary instruction Follow activity as directed Keep your appointments as scheduled Take your immunizations and boosters as scheduled If your symptoms worsen call your PCP, if no PCP go to Urgent Care Center or Emergency Room For 12/06 questions related to your inpatient stay or results of tests pending at discharge, please contact Dr. Brad Haddad at Smoking is Dangerous to Your Health. Avoid second hand smoking Brad Haddad MD Jun 14, 2017 09:49
== END 2017-06-14 13:00 | disposition left against medical advice (07) | DRG 885 ==
LOC: NEPE 13:21 → NEDA 21:21 → H260 23:15 → H270 06-11 15:05
PROVIDERS: ADMIT Psychiatry & Neurology Psychiatry; ATTEND Psychiatry & Neurology Psychiatry
DX: F25.0 Schizoaffective disorder, bipolar type (principal); R45.851 Suicidal ideations; Z91.14 Patient's other noncompliance with medication regimen; I10 Essential (primary) hypertension; M10.9 Gout, unspecified; F60.3 Borderline personality disorder; J45.909 Unspecified asthma, uncomplicated; G47.30 Sleep apnea, unspecified; E03.9 Hypothyroidism, unspecified
CPT/HCPCS: 80053; 80061; 80307; 81001; 83036; 84443; 85025

== ENCOUNTER 2017-08-28 17:49 | Emergency (ER) | payer OTHER ==
[~2017-08-28] VITALS: Ht 162.6 cm; Wt 119.0 kg
[~2017-08-28 17:49] MED LIST changes: -INVE1.5T PO; +INVE3TAB2 PO; -LEVO.05 PO; +LEVO.075 PO; -NAPR500T PO; -OFLO0.3D9 RIGHT EAR
[2017-08-28 18:06] VITALS: BP 112/65; PULSE 80; RESP 16; TEMP 97.4; O2SAT 95
[2017-08-28 19:41] VITALS: BP 114/82; PULSE 68; RESP 16; O2SAT 98
--- NOTE | 2017-08-28 20:15 | PD ---
HPI Chief Complaint: General Weakness Time Seen by Provider: 20:11 Travel History International Travel<30 days: No Contact w/Intl Traveler<30days: No Traveled to known affect area: No History of Present Illness HPI The patient is a 56-year-old female, schizophrenic, who felt lightheaded-not vertiginous and generalized weakness. She thought her blood pressure was elevated but is not elevated here. This started at 6 PM tonight. She denies any syncopal or near syncopal spells, chest pain, shortness of breath, vomiting , diarrhea, fever, headache or focal neurologic change. She states she gets hot flashes but this did not feel like a hot flash. She does get some nausea lately. PFSH Past Medical History Arthritis: Yes Asthma: Yes Autoimmune Disease: No Blood Disorders: No Bipolar Disorder: Yes Anxiety: Yes Depression: Yes Heart Rhythm Problems: No Cancer: No Cardiovascular Problems: No High Cholesterol: Yes Chemotherapy: No Chest Pain: No Congestive Heart Failure: No COPD: No Cerebrovascular Accident: No Developmental Delay: Yes Diabetes: Yes Patient Takes Glucophage: No Diminished Hearing: No Endocrine: Yes Gastrointestinal Disorders: No GERD: No Gout: Yes Genitourinary: No Hiatal Hernia: No Heparin Induced Thrombocytopen: No Hypertension: No Immune Disorder: No Implanted Vascular Access Dvce: No Kidney Stones: No Musculoskeletal: Yes Neurologic: No Psychiatric: Yes (Patient has long history of AVH) Reproductive: No Respiratory: Yes (ASTHMA) Integumentary: Yes (HX OF FUNGAL INFECTIONS UNDER BREAST) Immunizations Current: Yes Migraines: No Radiation Therapy: No Renal Failure: No Schizophrenia: Yes Seizures: No Sickle Cell Disease: No Sleep Apnea: Yes Thyroid Disease: Yes Ulcer: No Tetanus Vaccination: > 5 Years Influenza Vaccination: Yes PNEUMOCCOCAL Vaccine (Year): 2 ?: Not Menopausal: Yes : 0 Para: 0 Miscarriage: 0 : 0 Past Surgical History Abdominal Surgery: No AICD: No Arteriovenous Shunt: No Cardiac Surgery: No Ear Surgery: Yes (L EAR-REBUILD EAR DRUM, REMOVE SCAR TISSUE) Endocrine Surgery: No Eye Surgery: Yes (left eye repair for lazy eye) Genitourinary Surgery: No Gynecologic Surgery: No Insulin Pump: No Joint Replacement: Yes (R KNEE) Neurologic Surgery: No Oral Surgery: No Thoracic Surgery: No Tonsillectomy: Yes Tympanostomy Tube: Yes (L EAR ) Family History Family Myocardial Infarction: Yes (FATHER) Social History Alcohol Use: No Tobacco Use: No Substance Use: No Allergies-Medications (Allergen,Severity, Reaction): Coded Allergies: penicillin G (Unverified Allergy, Severe, Rash, 08/28/17) latex (Unverified Allergy, Mild, RASH, 08/28/17) Reported Meds & Prescriptions Reported Meds & Active Scripts Active Invega (Paliperidone ER) 3 Mg Tab 3 Mg PO BID 10 Days Celexa (Citalopram Hydrobromide) 20 Mg Tab 10 Mg PO DAILY 10 Days Synthroid (Levothyroxine Sodium) 75 Mcg Tab 75 Mcg PO DAILY Reported Invega Sustenna Inj (Paliperidone Palmitate) 156 Mg/Ml Inj 234 Mg IM Q28D Review of Systems Except as stated in HPI: all other systems reviewed are Neg Physical Exam Narrative GENERAL: The patient has a flat affect, obese, alert, oriented 3 in no apparent distress. Her vital signs are normal. SKIN: Focused skin assessment warm/dry. HEAD: Atraumatic. Normocephalic. EYES: Pupils equal and round. No scleral icterus. No injection or drainage. ENT: No nasal bleeding or discharge. Mucous membranes pink and moist. NECK: Trachea midline. No JVD. CARDIOVASCULAR: Regular rate and rhythm. No murmur appreciated. RESPIRATORY: No accessory muscle use. Clear to auscultation. Breath sounds equal bilaterally. GASTROINTESTINAL: Abdomen soft, non-tender, nondistended. Hepatic and splenic margins not palpable. No guarding or rebound is present. MUSCULOSKELETAL: No obvious deformities. No clubbing. No cyanosis. No edema. NEUROLOGICAL: Awake and alert. No obvious cranial nerve deficits. Motor grossly within normal limits. Normal speech. PSYCHIATRIC: The patient has a flat affect; insight and judgment normal. Data Data Last Documented VS Vital Signs Date Time Temp Pulse Resp B/P (MAP) Pulse Ox O2 Delivery O2 Flow Rate FiO2 08/28/17 19:41 98 Room Air 08/28/17 19:41 68 16 114/82 (93) 08/28/17 18:06 97.4 Orders Orders Complete Blood Count With Diff (08/28/17 20:15) Comprehensive Metabolic Panel (08/28/17 20:15) Urinalysis - C+S If Indicated (10/9/17 20:15) Labs Laboratory Tests Test 08/28/17 20:25 08/28/17 20:30 Urine Color STRAW Urine Turbidity SLIGHT Urine pH 6.0 Urine Specific [place] 1.004 Urine Protein NEG mg/dL Urine Glucose (UA) NEG mg/dL Urine Ketones NEG mg/dL Urine Occult Blood TRACE Urine Nitrite NEG Urine Bilirubin NEG Urine Leukocyte Esterase NEG Urine RBC 0-3 /hpf Urine Squamous Epithelial Cells 6-8 /hpf Urine Amorphous Sediment SMALL Urine Bacteria OCC /hpf Microscopic Urinalysis Comment CULT NOT INDICATED White Blood Count 11.6 TH/MM3 Red Blood Count 4.80 MIL/MM3 Hemoglobin 13.7 GM/DL Hematocrit 40.9 % Mean Corpuscular Volume 85.2 FL Mean Corpuscular Hemoglobin 28.5 PG Mean Corpuscular Hemoglobin Concent 33.4 % Red Cell Distribution Width 13.0 % Platelet Count 294 TH/MM3 Mean Platelet Volume 8.5 FL Neutrophils (%) (Auto) 71.0 % Lymphocytes (%) (Auto) 21.1 % Monocytes (%) (Auto) 4.3 % Eosinophils (%) (Auto) 1.4 % Basophils (%) (Auto) 2.2 % Neutrophils # (Auto) 8.1 TH/MM3 Lymphocytes # (Auto) 2.5 TH/MM3 Monocytes # (Auto) 0.5 TH/MM3 Eosinophils # (Auto) 0.2 TH/MM3 Basophils # (Auto) 0.3 TH/MM3 CBC Comment DIFF FINAL Differential Comment Blood Urea Nitrogen 13 MG/DL Creatinine 0.87 MG/DL Random Glucose 94 MG/DL Total Protein 7.9 GM/DL Albumin 3.5 GM/DL Calcium Level 9.0 MG/DL Alkaline Phosphatase 117 U/L Aspartate Amino Transf (AST/SGOT) 12 U/L Alanine Aminotransferase (ALT/SGPT) 29 U/L Total Bilirubin 0.3 MG/DL Sodium Level 137 MEQ/L Potassium Level 3.7 MEQ/L Chloride Level 102 MEQ/L Carbon Dioxide Level 28.2 MEQ/L Anion Gap 7 MEQ/L Estimat Glomerular Filtration Rate 68 ML/MIN [facility] Medical Decision Making Medical Screen Exam Complete: Yes Emergency Medical Condition: Yes Medical Record Reviewed: Yes Interpretation(s) The urine shows trace blood but is otherwise unremarkable and culture is not indicated. The complete metabolic profile shows a GFR of 68 but is otherwise normal. The CBC is normal except for a minimal elevation of the white count at 11,600. Differential Diagnosis Hypo-/hyperglycemia, electrolyte disorder, viral syndrome, anemia, urinary tract infection, other infection, schizophrenia manifestation Narrative Course Laboratory is essentially normal, I cannot find any definite reason for the patient's lightheadedness. This may be part of the patient's symptoms of schizophrenia or it may be a viral syndrome. Diagnosis Primary Impression: Lightheadedness Additional Impression: Schizophrenia Additional Instructions: Follow-up with her primary care physician this week if possible. I gave you the laboratory findings here to take to her doctor. Med/Other Pt SpecificInfo: No Change to Meds Disposition: 01 DISCHARGE HOME Condition: Stable Dru Lantigua MD Aug 28, 2017 20:15
[2017-08-28 20:40] LABS: AUTOMATED NEUTROPHIL # 8.1 TH/MM3 (1.8-7.7); BASOPHIL # 0.3 TH/MM3 (0-0.2); BASOPHIL % 2.2 % (0.0-2.0); EOSINOPHIL # 0.2 TH/MM3 (0-0.4); EOSINOPHIL % 1.4 % (0.0-4.0); HEMATOCRIT 40.9 % (35.0-46.0); HEMO FLAGS DIFF FINAL; LYMPH % 21.1 % (9.0-44.0); LYMPHOCYTE # 2.5 TH/MM3 (1.0-4.8); MEAN CELL VOLUME 85.2 FL (80.0-100.0); MEAN CORPUSCULAR HEMOGLOBIN 28.5 PG (27.0-34.0); MEAN CORPUSCULAR HGB CONC 33.4 % (32.0-36.0); MONO % 4.3 % (0.0-8.0); PLATELET COUNT 294 TH/MM3 (150-450); WHITE BLOOD COUNT 11.6 TH/MM3 (4.0-11.0)
[2017-08-28 20:44] LABS: GLUCOSE,URINE NEG (NEG); KETONE, URINE NEG (NEG); NITRITE,URINE NEG (NEG)
[2017-08-28 20:49] LABS: CHLORIDE 102 MEQ/L (98-107); POTASSIUM 3.7 MEQ/L (3.5-5.1); SODIUM (NA) 137 MEQ/L (136-145)
[2017-08-28 20:52] LABS: ANION GAP 7 MEQ/L (5-15); BICARBONATE 28.2 MEQ/L (21.0-32.0)
[2017-08-28 20:53] LABS: BLOOD UREA NITROGEN 13 MG/DL (7-18)
[2017-08-28 20:55] LABS: ALT (GPT) 29 U/L (10-53); AST (GOT) 12 U/L (15-37)
[2017-08-28 20:56] LABS: GLOMERULAR FILTRATION RATE 68 ML/MIN (>89)
[2017-08-28 20:57] LABS: TOTAL BILIRUBIN ADULT 0.3 MG/DL (0.2-1.0)
[2017-08-28 20:58] LABS: ALKALINE PHOSPHATASE 117 U/L (45-117)
[2017-08-28 21:02] LABS: BLOOD, URINE TRACE (NEG)
[2017-08-28 21:03] LABS: URINE COLOR STRAW (YELLW/STRAW)
[2017-08-28 21:06] LABS: BACTERIA, URINE OCC /hpf
[2017-08-28 21:07] LABS: COMMENT (UR) CULT NOT INDICATED; CULTURE IF INDICATED CULT NOT INDICATED; RBC, URINE 0-3 /hpf (0-3)
[2017-08-28 21:28] VITALS: BP 116/73; PULSE 72; RESP 16; O2SAT 100
== END 2017-08-28 21:37 | disposition home or self-care (01) ==
LOC: PHED 17:49
DX: R42 Dizziness and giddiness (principal); R53.1 Weakness; E11.9 Type 2 diabetes mellitus without complications; F31.9 Bipolar disorder, unspecified; F41.9 Anxiety disorder, unspecified; E78.5 Hyperlipidemia, unspecified; J45.909 Unspecified asthma, uncomplicated; F20.9 Schizophrenia, unspecified
CPT/HCPCS: 80053; 81001; 85025; 99283